=== PATIENT | female | born 1960 | race Caucasian/White ===

== ENCOUNTER → 2017-04-06 | Outpatient (CLI) | payer OTHER ==
[~2017-04-06] VITALS: Ht 170.2 cm; Wt 104.3 kg
== END | disposition home or self-care (01) ==
LOC: EDSTATUS 10:00 → SLB 14:28
PROVIDERS: ATTEND Orthopaedic Surgery
DX: Z01.812 Encounter for preprocedural laboratory examination (principal); M17.12 Unilateral primary osteoarthritis, left knee; Z87.891 Personal history of nicotine dependence; F41.8 Other specified anxiety disorders
CPT/HCPCS: 87081